=== PATIENT | female | born 1995 | race Caucasian/White ===

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

== ENCOUNTER 2017-02-28 22:30 | Emergency (ER) | payer OTHER ==
--- NOTE | 2017-02-28 22:44 | ED.PDOC ---
History of Present Illness - General Chief Complaint: Neuro Symptoms/Deficits Stated Complaint: Seizure & Vomiting Time Seen by Provider: 02/28/17 22:31 Source: RN notes reviewed, Vital Signs reviewed, other - Boyfriend & his mother Exam Limitations: clinical condition - unresponsive - History of Present Illness Initial Comments: Patient brought in from home by boyfriend and his mother with c/o vomiting and seizure. Reports vomiting started @ ~21:30. Since then they report she has been minimally responsive and unable to talk. Seemed confused and "out of it". Vomited again just before seizure @~22:20. Per boyfriend seizure lasted 1 minute. They report since then (in a 15 minute period) she had numerous seizures lasting from 10-60 seconds. Timing/Duration: 1-3 hours Severity: severe Improving Factors: nothing Worsening Factors: nothing Associated Symptoms: confusion, loss of consciousness, nausea/vomiting, seizures Allergies/Adverse Reactions: Allergies NO KNOWN ALLERGY Allergy (Verified 12/23/15 23:17) Home Medications: Ambulatory Orders Tramadol HCl 1 - 2 ea PO Q6H PRN #40 tab 12/13/15 Review of Systems - Review of Systems Unable to Obtain Due To: clinical condition Past Medical History (General) - Patient Medical History Hx Seizures: Yes - 2012 Hx Stroke: Yes - 2012 Hx Dementia: No Hx Asthma: No Hx of COPD: No 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 Hx Congestive Heart Failure: No Hx Pacemaker: Yes Hx Hypertension: No Hx Thyroid Disease: No Hx Diabetes: No Hx Gastroesophageal Reflux: No Hx Renal Disease: No Hx Cancer: No Hx of HIV: No Hx Hepatitis C: No Hx MRSA: No - Vaccination History Hx Tetanus, Diphtheria Vaccination: Yes Hx Influenza Vaccination: Yes Hx Pneumococcal Vaccination: No - Social History Hx Tobacco Use: No Hx Chewing Tobacco Use: No Hx Alcohol Use: No Hx Substance Use: No Hx Substance Use Treatment: No Hx Depression: No Hx Physical Abuse: No Hx Emotional Abuse: No Hx Suspected Abuse: No - Female History Hx Last Menstrual Period: 06/28/16 Patient : No Family Medical History - Family History Mother Family History: No Known Living Status: Still Living Hx Family Asthma: No Hx Family Congestive Heart Failure: No Hx Family Hypertension: No Hx Family Stroke: No Hx Cardiac Disease: No Hx Family Diabetes: No Hx Family Cancer: No Physical Exam - Physical Exam General Appearance: Lethargic Eye Exam: bilateral normal, bilateral other - Injected conjunctiva ENT Exam: normal ENT inspection Neck: full range of motion, supple, normal inspection Respiratory: lungs clear, normal breath sounds, no respiratory distress, no accessory muscle use Cardiovascular/Chest: regular rate, rhythm, no gallop, no murmur Extremities Exam: normal range of motion, no evidence of injury Mental Status: lethargic - Looking around room. 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 She reports this is exactly what happens when the patient smokes marijuana. Boyfriend admits patient smoked marijuana with his sister monico. Mom report she only has seizures when she smokes marijuana. 03/01/17 00:26 Patient is now awake and answering questions appropriately. Admits to alcohol use monico but denies any marijuana or drug use. 03/01/17 00:53 Discussed that she seems to have serious issues with drugs and alcohol - needs to avoid use. - Results/Orders Results/Orders: Laboratory Tests 02/28/17 02/28/17 02/28/17 00:01 23:22 23:22 WBC 8.9 RBC 5.36 Hgb 15.7 Hct 46.2 MCV 86.2 MCH 29.4 MCHC 34.1 RDW 13.8 Plt Count 228 MPV 9.4 Absolute Neuts (auto) 7.40 H Absolute Lymphs (auto) 1.10 Absolute Monos (auto) 0.30 Absolute Eos (auto) 0.00 Absolute Basos (auto) 0.00 Neutrophils % 83.1 H Lymphocytes % 12.5 L Monocytes % 3.7 Eosinophils % 0.2 L Basophils % 0.5 Sodium 138 Potassium 3.4 L Chloride 106 Carbon Dioxide 24 Anion Gap 11.4 L BUN 9 Creatinine 0.50 L BUN/Creatinine Ratio 18.0 Random Glucose 100 Serum Osmolality 274.4 L Calcium 9.8 Total Bilirubin 0.3 AST 40 ALT 44 Alkaline Phosphatase 58 L Serum Total Protein 9.4 H Albumin 5.5 Globulin 3.9 H Albumin/Globulin Ratio 1.4 Serum HCG, Qual Urine Opiates Screen Negative Urine Barbiturates Negative Ur Phencyclidine Scrn Negative U Amphetamin/Meth Scrn Negative U Benzodiazepines Scrn Negative U Cocaine Metab Screen Negative U Cannabinoids Screen Negative Ethyl Alcohol 02/28/17 02/28/17 23:22 23:22 WBC RBC Hgb Hct MCV MCH MCHC RDW Plt Count MPV Absolute Neuts (auto) Absolute Lymphs (auto) Absolute Monos (auto) Absolute Eos (auto) Absolute Basos (auto) Neutrophils % Lymphocytes % Monocytes % Eosinophils % Basophils % Sodium Potassium Chloride Carbon Dioxide Anion Gap BUN Creatinine BUN/Creatinine Ratio Random Glucose Serum Osmolality Calcium Total Bilirubin AST ALT Alkaline Phosphatase Serum Total Protein Albumin Globulin Albumin/Globulin Ratio Serum HCG, Qual Negative Urine Opiates Screen Urine Barbiturates Ur Phencyclidine Scrn U Amphetamin/Meth Scrn U Benzodiazepines Scrn U Cocaine Metab Screen U Cannabinoids Screen Ethyl Alcohol 99.80 H* - EKG/XRAY/CT Comments: Ventricular Pacemaker CT Ordered: Yes - Head: no acute intracranial abnormality per Rad Departure - Departure Clinical Impression: Seizure disorder, Alcohol intoxication delirium Altered mental status Qualifiers: Altered mental status type: transient alteration of awareness Qualified Code(s) : R40.4 - Transient alteration of awareness Time of Disposition: 00:52 Disposition: Discharge to Home or Self Care Condition: Fair Departure Forms: ED Discharge - Pt. Copy, Patient Portal Self Enrollment Instructions: DI for Alcohol Abuse and Alcoholism, DI for Seizure (Not Epilepsy /Seizure Disorder), DI for Altered Mental Status Diet: resume usual diet Activity: increase activity as tolerated Referrals: Osorio Figueroa MD [Primary Care Provider] - 1-2 Weeks Home Medications: Ambulatory Orders Tramadol HCl 1 - 2 ea PO Q6H PRN #40 tab 12/13/15
[2017-02-28] MEDS ORDERED: SODIUM CHLORIDE 0.9% 1000ML 1,000 ML IVS ONE (23:49)
--- NOTE | 2017-03-01 00:48 | CT ---
EXAM DESCRIPTION: Head CLINICAL HISTORY: Seizure COMPARISON: 01/11/2014 TECHNIQUE: Axial CT of the head obtained from the skull apex to the skull base without contrast. FINDINGS: No acute intracranial hemorrhage identified. No mass, mass effect, shift of the midline, abnormal extra-axial fluid collection or CT evidence of acute ischemic change identified. The ventricular system is unremarkable. No acute abnormalities of the supratentorial white matter, basal ganglia, cerebellum, or brainstem. 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 The visualized paranasal sinuses and the mastoids are clear. No skull fracture identified. Visualized orbits and globes are unremarkable. DLP: 677.23 mGy-cm IMPRESSION: 1. No acute intracranial abnormality by CT criteria. This exam was performed according to our departmental dose-optimization program, which includes automated exposure control, adjustment of the mA and/or kV according to patient size and/or use of iterative reconstruction technique. Electronically signed by: Rajiv Marin 03/01/2017 12:46 AM CDT
[2017-03-01 00:55] VITALS: BP 105/57; TEMP 97.8; O2SAT 98
== END 2017-03-01 01:03 | disposition home or self-care (01) ==
LOC: ER 22:30
DX: G40.909 Epilepsy, unspecified, not intractable, without status epilepticus (principal); F10.121 Alcohol abuse with intoxication delirium; Y90.4 Blood alcohol level of 80-99 mg/100 ml; R40.4 Transient alteration of awareness; Z95.0 Presence of cardiac pacemaker
CPT/HCPCS: 36415; 70450; 80053; 80307; 80320; 84703; 85025; 93005; J7030

== ENCOUNTER 2017-05-08 20:15 | Emergency (ER) | payer SELFPAY ==
[2017-05-08 20:39] VITALS: TEMP 98.4; O2SAT 97
--- NOTE | 2017-05-08 20:41 | ED.PDOC ---
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 Time Seen by Provider: 05/08/17 20:27 Source: patient Exam Limitations: no limitations - History of Present Illness Timing/Duration: this morning - vag bleeding started today, but has had low back pain for two days Quality: moderate, cramping Onset Location: suprapubic, left flank Radiation: left flank Activites at Onset: rest Prior abdominal problems: similar symptoms - had a miscarriage 2-3 months ago Sexual intercourse history: single partner Improving Factors: nothing Worsening Factors: nothing Associated Symptoms: abdominal pain Allergies/Adverse Reactions: Allergies NO KNOWN ALLERGY Allergy (Verified 12/23/15 23:17) Home Medications: Ambulatory Orders Tramadol HCl 1 - 2 ea PO Q6H PRN #40 tab 12/13/15 Indomethacin 50 mg PO TID PRN #14 cap 05/08/17 Review of Systems - Review of Systems Constitutional: Denies: fever, weakness EENTM: States: no symptoms reported Respiratory: Denies: short of breath Cardiology: Denies: chest pain, edema, syncope Gastrointestinal/Abdominal: States: abdominal pain. Denies: diarrhea, nausea, vomiting Genitourinary: States: see HPI. 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 Hx Congestive Heart Failure: No Hx Pacemaker: Yes Hx Hypertension: No Hx Thyroid Disease: No Hx Diabetes: No Hx Gastroesophageal Reflux: No Hx Renal Disease: No Hx Cancer: No Hx of HIV: No Hx Hepatitis C: No Hx MRSA: No - Vaccination History Hx Tetanus, Diphtheria Vaccination: Yes Hx Influenza Vaccination: Yes Hx Pneumococcal Vaccination: No - Social History Hx Tobacco Use: No Hx Chewing Tobacco Use: No Hx Alcohol Use: No Hx Substance Use: No Hx Substance Use Treatment: No Hx Depression: No Hx Physical Abuse: No Hx Emotional Abuse: No Hx Suspected Abuse: No - Female History Hx Last Menstrual Period: 06/28/16 Patient : No Family Medical History - Family History Mother Family History: No Known Living Status: Still Living Hx Family Asthma: No Hx Family Congestive Heart Failure: No Hx Family Hypertension: No Hx Family Stroke: No Hx Cardiac Disease: No Hx Family Diabetes: No Hx Family Cancer: No Physical Exam - Physical Exam General Appearance: Alert, Anxious Eyes, Ears, Nose, Throat Exam: PERRL/EOMI, pharynx normal Neck: non-tender, supple, normal inspection Cardiovascular/Respiratory: regular rate, rhythm, normal breath sounds Gastrointestinal/Abdominal: normal bowel sounds, soft, tenderness - suprapubic and LLQ Rectal Exam: deferred Back Exam: normal inspection, no CVA tenderness Extremity: normal range of motion, normal inspection, no pedal edema 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 Copy, Patient Portal Self Enrollment Referrals: Osorio Figueroa MD [Primary Care Provider] - 1-2 Weeks Prescriptions: Indomethacin 50 mg PO TID PRN #14 cap PRN Reason: Abdominal Cramping Home Medications: Ambulatory Orders Tramadol HCl 1 - 2 ea PO Q6H PRN #40 tab 12/13/15 Indomethacin 50 mg PO TID PRN #14 cap 05/08/17
[2017-05-08 21:20] VITALS: BP 110/72
== END 2017-05-08 21:20 | disposition home or self-care (01) ==
LOC: ER 20:15
DX: N93.8 Other specified abnormal uterine and vaginal bleeding (principal); Z95.0 Presence of cardiac pacemaker; Z86.73 Personal history of transient ischemic attack (TIA), and cerebral infarction without residual deficits

== ENCOUNTER 2017-05-11 17:30 | Inpatient (IN) | payer MEDICAID ==
[2017-05-11] MEDS ORDERED: ONDANSETRON INJ 4 MG/2 ML VIAL IV ONE (18:53)
[2017-05-11] MEDS ORDERED: SODIUM CHLORIDE 0.9% 1000ML 1,000 ML IVS ONE (18:53)
--- NOTE | 2017-05-11 18:56 | ED.PDOC ---
History of Present Illness - General Chief Complaint: Problem Stated Complaint: vomiting,right flank pain Time Seen by Provider: 05/11/17 18:51 Source: patient Exam Limitations: no limitations - History of Present Illness Initial Comments: RIGHT FLANK PAIN ONSET YESTERDAY ASSOCIATED WITH NAUSEA AND DIARRHEA. SHE HAS HAD SUBJECTIVE FEVER. Timing/Duration: 24 hours Severity: moderate Improving Factors: nothing Worsening Factors: nothing Associated Symptoms: cough, fever/chills Allergies/Adverse Reactions: Allergies NO KNOWN ALLERGY Allergy (Verified 12/23/15 23:17) Home Medications: Ambulatory Orders NK [NK] 05/11/17 Review of Systems - Review of Systems Constitutional: States: chills EENTM: States: no symptoms reported Respiratory: States: cough, short of breath Cardiology: States: no symptoms reported Gastrointestinal/Abdominal: States: diarrhea, nausea Genitourinary: States: frequency, other - RIGHT FLANK PAIN Musculoskeletal: States: no symptoms reported Skin: States: no symptoms reported Neurological: States: no symptoms reported, depressed Endocrine: States: no symptoms reported Past Medical History (General) - Patient Medical History Hx Seizures: Yes - 2012 Hx Stroke: Yes - 2012 Hx Dementia: No Hx Asthma: No Hx of COPD: No 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 Hx Congestive Heart Failure: No Hx Pacemaker: Yes Hx Hypertension: No Hx Thyroid Disease: No Hx Diabetes: No Hx Gastroesophageal Reflux: No Hx Renal Disease: No Hx Cancer: No Hx of HIV: No Hx Hepatitis C: No Hx MRSA: No Surgical History: pacemaker - Vaccination History Hx Tetanus, Diphtheria Vaccination: Yes Hx Influenza Vaccination: No Hx Pneumococcal Vaccination: No - Social History Hx Tobacco Use: Yes Hx Chewing Tobacco Use: No Hx Alcohol Use: No Hx Substance Use: No Hx Substance Use Treatment: No Hx Depression: No Hx Physical Abuse: No Hx Emotional Abuse: No Hx Suspected Abuse: No - Female History Patient is a Female of Child Bearing Age (10 -59 yrs old): Yes Hx Last Menstrual Period: 06/28/16 Patient : No Family Medical History - Family History Mother Family History: No Known Living Status: Still Living Hx Family Asthma: No Hx Family Congestive Heart Failure: No Hx Family Hypertension: No Hx Family Stroke: No Hx Cardiac Disease: No Hx Family Diabetes: No Hx Family Cancer: No Physical Exam - Physical Exam General Appearance: Alert, Anxious Eye Exam: bilateral normal Ears, Nose, Throat: normal ENT inspection, normal pharynx Neck: non-tender, full range of motion, supple, normal inspection Respiratory: chest non-tender, rhonchi Cardiovascular/Chest: normal peripheral pulses, regular rate, rhythm, no edema, no gallop Peripheral Pulses: radial,right: 2+ Gastrointestinal/Abdominal: normal bowel sounds, non tender, soft, no organomegaly, no pulsatile mass Rectal Exam: deferred Back Exam: normal inspection Extremity: normal range of motion Neurologic: no motor/sensory deficits, alert, oriented x 3 Skin Exam: normal color, warm/dry Lymphatic: no adenopathy Progress - Results/Orders Results/Orders: THE WBC [place] 80[address] WITH 90% NEUTROPHILS. THE UA WITH 4+ BACTERIA AND KETONURIA AND PROTEINURIA. CXR WAS NEGATIVE. WILL ADMIT TO THE HOSPITAL. Departure - Departure Clinical Impression: Acute pyelonephritis Intractable vomiting with nausea Qualifiers: Vomiting type: unspecified Qualified Code(s): R11.2 - Nausea with vomiting, unspecified Time of Disposition: 21:03 Disposition: Admit Patient Referrals: DENNIS COLES [Primary Care Provider] - 1-2 Weeks Home Medications: Ambulatory Orders NK [NK] 05/11/17 Decision To Admit - Decistion To Admit Decision to Admit Reason: Admit from ER Decision to Admit Date: 05/11/17 Decision to Admit Time: 21:02
--- NOTE | 2017-05-11 19:13 | RAD ---
EXAM DESCRIPTION: Chest,1 View CLINICAL HISTORY: SOB, FEVER COMPARISON: 12/23/2015 FINDINGS: Electronic cardiac device and lead as well as apparent abandoned wire are again seen. Cardiac silhouette is within normal limits. There is no focal parenchymal or pleural disease. Visualized osseous structures are within normal limits. IMPRESSION: No evidence of acute cardiopulmonary disease. Electronically signed by: Rocael Finch 05/11/2017 7:12 PM [employer]
[2017-05-11] MEDS ORDERED: KETOROLAC TROMETHAMINE INJ 30 MG/ML VIAL ONE (19:56)
[2017-05-11] MEDS ORDERED: KETOROLAC TROMETHAMINE INJ 30 MG/ML VIAL IV ONE (20:00)
[2017-05-11] MEDS ORDERED: cefTRIAXone SODIUM 1 GM in SODIUM CHL 0.9% 50ML MIN-BAG+ 50 ML IVPB ONE (21:04)
[2017-05-11] MEDS ORDERED: cefTRIAXone SODIUM 1 GM VIAL ONE (21:06)
[2017-05-11] MEDS ORDERED: SODIUM CHL 0.9% 50ML MIN-BAG+ 50 ML IVPB ONE (21:06)
--- NOTE | 2017-05-11 22:37 | HP ---
SUPERVISING PHYSICIAN: Osorio Figueroa MD CHIEF COMPLAINT: Right flank pain, nausea or vomiting. HISTORY OF PRESENT ILLNESS: Ms. Amaral is a 22 year-old female patient, 1, para 0, abortus 1, that presented to the Emergency Department today with severe right flank pain that started yesterday, the day before admission that accompanied some nausea and vomiting and some mild diarrhea. She denies any fever at home. She presented to the Emergency Department for evaluation due to the severe pain. Laboratory studies showed she had a white count of 19, 700 with a left shift. Chemistries showed a mild hypokalemia with a potassium fo 3.5, slight elevation in liver function with an elevated AST at 65, ALT 62. Amylase and lipase were within normal limits. Kidney functions showed a BUN of 14, creatinine 0.67. Urinalysis showed 100 of protein with trace of blood, positive nitrites and on microscopic there was 0 t 1 RBC, 1 to 3 WBC, 4+ bacteria, trace amount of mucus and urine HCG was negative. The patient is now going to be placed in observation with concerns for complicated cystitis developing to a pyelonephritis on the right side for further treatment and evaluation. She is admitted in stable condition. PAST MEDICAL HISTORY: 1. Cardiomyopathy resulting in a pacemaker implantation at 7 years of age. 2. Previous stroke, uncertain region reported by mother secondary to a blood clot as a child. PAST SURGICAL HISTORY: No major surgeries other than pacemaker implantation at 7 years of age. OBSTETRICAL HISTORY: 1, para 0, abortus 1. Last menstrual period current. CURRENT MEDICATIONS: No chronic medications listed. ALLERGIES: No known drug allergies. FAMILY HISTORY: Positive for cancer, hypertension, diabetes. SOCIAL HISTORY: The patient just recently moved to [facility] with her mother after a separation from her for the last several months. She notes that she is sexually active with a single partner besides her 's separation. She is disabled. She does smoke less than half pack a day and drinks occasional alcohol. She denies illicit drug use. REVIEW OF SYSTEMS: CONSTITUTIONAL: Notes she has had some chills but unsure if any fever at home and has general malaise. HEENT: Denies nasal congestion, headaches, sore throat. RESPIRATORY: She does have a cough with some mild shortness of breath which is nonproductive. CARDIOVASCULAR: Denies chest pain, syncopal episodes or palpitations. She does have a history of cardiomyopathy with a previous pacemaker implantation at age of 7. GASTROINTESTINAL: As noted in history of present illness. Noted some mild diarrhea with some nausea and vomiting. She does have some right upper quadrant pain. GENITOURINARY: Increased frequency with right flank pain. NEUROLOGICAL: Denies any neurological deficits, dizziness, change in vision. PHYSICAL EXAMINATION: VITAL SIGNS: Temperature 96.8, pulse 58, blood pressure 104/60, respirations 18, saturation 99% on room air. Admission weight 49.1 kg. GENERAL: The patient is resting comfortably on admission to the medical/ surgical floor, appears to be in no acute distress. She is ill in appearance, appears to be well hydrated and well-nourished. HEENT: Tympanic membranes are clear bilaterally. Oropharynx pink. Mucous membranes mildly dry with no lesions. NECK: Supple, non-tender with full range of motion. No jugular venous distention. CHEST: Clear to auscultation without any rhonchi, rales, or wheezes. CARDIOVASCULAR: Regular rate and rhythm without appreciable murmurs, rubs, or gallops. ABDOMEN: Soft with some tenderness noted across the right upper quadrant and into the right flank area. EXTREMITIES: No cyanosis, clubbing, or edema. NEUROLOGIC: She is alert and oriented x3. Cranial nerves II through XII are grossly intact. LABORATORY: White count shows a leukocytosis with 19,700 and left shift on differential. Hemoglobin 15.4, hematocrit 46.0. Platelet count 215,000. Chemistries showed a mild hypokalemia with potassium of 3.5, BUN 14, creatinine 0.67, glucose 115, calcium 9.5, bilirubin normal at 0.7. AST slightly elevated at 65, ALT elevated at 63, alkaline phosphatase low at 62. LDH is elevated at 553. Serum protein 8.5, amylase and lipase both within normal limits. Urinalysis showed 100 of protein with trace of blood, positive nitrites. Microscopic revealed 0 to 1 RBC, 1 to 3 WBC, 5 to 10 epithelials with 4+ bacteria. Urine HCG was negative. MICROBIOLOGY: Urine culture pending. She had an influenza swab for A and B and by PCR showed to be negative for both. RADIOLOGY: Chest x-ray initially in the Emergency Department per radiology interpretation showed no evidence of acute cardiopulmonary disease. She had an abdominal CT pelvis with contrast on admission to the medical/surgical floor secondary to her right flank pain and per radiology interpretation there was note of a wedged shaped area of enhancing renal tissue in the superior pole of the kidney with adjacent areas of diminished perfusion in the anterior aspect and superior pole, findings suggest area of infarct with adjacent areas of diminished perfusion. Finding would be atypical presentation of pyelonephritis. There was no evidence of acute process specifically. No additional foci to suggest acute infarct. The visualized segments of the right main renal artery were unremarkable and there was no mention of hydronephrosis or calculus. ASSESSMENT: 1. Right flank pain with nausea and vomiting with CT findings suggestive of a right kidney infarct with the right main renal artery appearing to be unremarkable per radiology with no mention of hydronephrosis or calculus with patient showing an elevated LDH. 2. Urinary tract infection, cystitis with atypical presentation of pyelonephritis with the patient showing infarcted right kidney and elevated LDH. 3. History of cardiomyopathy as a child requiring pacemaker implantation. 4. History of previous stroke secondary to a blood clot of uncertain etiology. with no medical records for review and the patient being a poor historian. PLAN: The patient will be admitted to the medical/surgical floor for further evaluation and treatment. She will be started on DVT prophylaxis given her history, per protocol with Lovenox. I will start her on some IV fluids, half normal saline, 20 of potassium to run at 125 an hour. Started her on some Rocephin in regards to the urinary tract infection with concerns for maybe atypical pyelonephritis but no CT evidence of findings suggestive of typical pyelonephritis. We certainly need to contact Dr. Daly, nephrology/urology in the morning in regards to the findings on the CT with suggested further followup and treatment plan. Will utilize morphine for pain and try to avoid Toradol with the findings suggestive of an infarct. She will be on a clear liquid diet, as tolerated will advance her diet. We plan to repeat laboratory studies in the morning including CBC and CMP and further await culture studies to further target antibiotic therapy. Will anticipate length of stay to be 2 to 3 days. Until clinically stable, will continue to monitor and treat approximately. #[id number] [facility]
[2017-05-11] MEDS ORDERED: ACETAMINOPHEN 325 MG TAB PO PRN (23:29)
[2017-05-11] MEDS ORDERED: KETOROLAC TROMETHAMINE INJ 30 MG/ML VIAL IV PRN (23:32)
[2017-05-12] MEDS: IV SET AND CAP CHANGE INJ INJ SCH (00:10)
--- NOTE | 2017-05-12 00:19 | PCM.CORE ---
Physician DVT/VTE - Nurse DVT Assessment & Total Each Risk Factor Represents 3 Points: Medical PT with Hx of AR, CHF, Severe infection/sepsis Each Risk Factor Represents 1 Point: Hx of smoking past year DVT Assessment Score: 4 - 5 or more Very High Risk Treatments: Early Ambulation *, Sequential Compression Device Pharmacological: Enoxaparin 40mg SQ Daily
[2017-05-12] MEDS ORDERED: ENOXAPARIN SODIUM 40 MG/0.4 ML SYG SUBCU SCH ×3 (00:30→11:00)
[2017-05-12] MEDS ORDERED: KETOROLAC TROMETHAMINE INJ 30 MG/ML VIAL ONE (00:57)
--- NOTE | 2017-05-12 01:06 | CT ---
EXAM DESCRIPTION: Abdomen/Pelvis w/Contrast CLINICAL HISTORY: 22 years Female RUQ and Rt flank pain N/V , UTI, Leukocytosis COMPARISON: None. TECHNIQUE: Contiguous axial images obtained through the abdomen and pelvis following IV contrast. Reformatted images obtained. This exam was performed according to our department optimization program which includes automated exposure control, adjustment of the mA and/or kv according to patient size and/or use of iterative reconstruction technique. FINDINGS: The liver appears unremarkable. The spleen and pancreas appear unremarkable. No adrenal masses. There is diminished enhancement in the superior aspect of the right kidney with a wedge-shaped area of unenhanced tissue. The configuration suggests infarct. Atypical pyelonephritis not excluded. There is no surrounding inflammation. The visualized segments of the right main renal artery are unremarkable. No hydronephrosis or calculus. The gallbladder is visualized. No aneurysmal dilatation of the aorta. No bowel obstruction. The appendix is unremarkable. No significant free fluid noted. IMPRESSION: There is a wedge-shaped area of an enhancing renal tissue in the superior pole of the right kidney with adjacent areas of diminished perfusion in the anterior aspect and superior pole. Findings suggest area of infarct with adjacent areas of diminished perfusion. Findings would be an atypical presentation of pyelonephritis No additional evidence of acute process specifically no additional foci to suggest acute infarct Ashley Celaya the charge nurse was called and notified of the findings at 1:05 AM central time. Electronically signed by: Odalis Moreno 05/12/2017 1:05 AM [employer] [employer]
[2017-05-12] MEDS: SODIUM CHLORIDE 0.9% (FLUSH) 10 ML SYG IV PRN ×3 (02:10→22:33)
[2017-05-12] MEDS: MORPHINE SULFATE INJ 10 MG/ML VIAL IV PRN ×7 (02:11→22:33)
[2017-05-12] MEDS: KCL 20MEQ/0.45% NS 1,000 ML IVS PRN ×2 (02:12→09:57)
[2017-05-12] MEDS ORDERED: HYDROcodone 10MG/APAP 325MG 1 EA TAB PO ONE (14:21)
--- NOTE | 2017-05-12 15:47 | PN ---
DATE: 05/12/17 SUPERVISING PHYSICIAN: Osorio Figueroa M.D. SUBJECTIVE: The patient is lying in bed. She is somewhat tearful. She denies any chest pain, nausea, vomiting, diarrhea. She complains of extremely bad right lower back pain. On a scale of 1 to 10, her pain is about an 8. She has been getting morphine for it and I have told her we will adjust her pain medications. OBJECTIVE: She is afebrile, heart rate 64, blood pressure 111/70, respiratory rate 18, O2 sat is 96% on room air. RESPIRATORY: Essentially clear to auscultation bilaterally. CARDIAC: Regular rate and rhythm. ABDOMEN: Soft, nondistended, non-tender. Bowel sounds are positive. She does have right flank pain, very tender to palpation. EXTREMITIES: No cyanosis, clubbing or edema. NEUROLOGIC: Awake, alert and oriented times three. LABORATORY: Sodium 140, potassium 3.9, chloride 105, carbon dioxide 28, BUN 11 , creatinine 0.62, glucose 129. AST 43, ALT 51, alkaline phosphatase 50. WBCs have improved from 19.7 yesterday to 13.8 today with hemoglobin 12.2 and hematocrit 36.2. Preliminary urine culture shows gram-negative rods. RADIOLOGY: Abdomen and pelvis CT per radiology interpretation shows a wedge- shaped area of enhancing renal tissue in the superior pole of the right kidney with adjacent areas of diminished perfusion in the anterior aspect and superior pole. Findings suggest area of infarct with adjacent areas of diminished perfusion. Findings would be an atypical presentation of pyelonephritis. No additional evidence of acute process, specifically no additional foci to suggest acute infarct. All other labs and films have been reviewed via the EMR. ASSESSMENT: 1. Subsegmental pyelonephritis presently being treated with Rocephin and gram-negative rods on urine culture. 2. Right kidney infarct per CT findings with the right main renal artery appearing to be unremarkable per radiology and no mention of hydronephrosis. She also has an elevated LDH. 3. Urinary tract infection. 4. History of cardiomyopathy as a child requiring pacemaker implantation. 5. History of previous stroke secondary to a blood clot of uncertain etiology approximately 5 years ago. There are no medical workups to review at this time. PLAN: We will continue present supportive care. We will change antibiotics as indicated by culture sensitivities. I spoke with Dr. Daly, board certified music therapist, today and he has recommended that she get a 24 hour urine for protein as well as a lupus panel, and he will see her in the outpatient setting. I also spoke with Dr. Scar Phillips, urologist, and he suggested that this presentation may be segmental pyelonephritis and continue treatment based on cultures. He felt that there was nothing acutely that should be done and she could followup with him in the outpatient setting. He also suggested that she have an echocardiogram as well as seeing a hospice spiritual care coordinator, and I will set her up with followup with Dr. Dixon, hospice spiritual care coordinator, and will also find out if she has any additional labs that she would like to have ordered. She does not have a local physician so I will set her up with [facility] and Dr. Perez. I have ordered routine labs in the morning as well as those labs suggested by Dr. Daly. Will continue with the Rocephin at this time. Tomorrow , he sensitivities should be back. She is having some pain issues and at this time she is getting morphine. I will add some [place] and see if we can transition her from IV pain medications to oral pain medications. She is not having any nausea or vomiting at this time. I discussed at length with the patient as well as her mother the findings on her testing as well as thee recommendations by the specialist. They agree with the planned treatment of care. We will continue to monitor the patient closely and follow as needed. Dr. Figueroa is the collaborating physician available for consultation. [facility][id number] [facility]
[2017-05-12] MEDS: ENOXAPARIN SODIUM 40 MG/0.4 ML SYG SUBCU SCH (20:27)
[2017-05-13] MEDS: MORPHINE SULFATE INJ 10 MG/ML VIAL IV PRN ×4 (00:25→08:38)
[2017-05-13] MEDS: SODIUM CHLORIDE 0.9% (FLUSH) 10 ML SYG IV PRN ×4 (00:25→22:14)
[2017-05-13] MEDS: KCL 20MEQ/0.45% NS 1,000 ML IVS PRN ×3 (02:41→20:25)
[2017-05-13] MEDS ORDERED: MAGNESIUM SULFATE PREMIX 2GM 2 GM in PREMIX BAG 1 BAG IVPB ONE (10:00)
[2017-05-13] MEDS ORDERED: MAGNESIUM SULFATE PREMIX 2GM 50 ML IVPB ONE (10:23)
[2017-05-13] MEDS: fentaNYL CITRATE INJ 50 MCG/ML AMP IV PRN ×3 (11:45→22:15)
[2017-05-13] MEDS ORDERED: KETOROLAC TROMETHAMINE INJ 30 MG/ML VIAL ONE (11:55)
[2017-05-13] MEDS: KETOROLAC TROMETHAMINE INJ 30 MG/ML VIAL IV SCH ×2 (12:02→18:03)
--- NOTE | 2017-05-13 12:40 | PN ---
DATE: 05/13/17 SUPERVISING PHYSICIAN: Osorio Figueroa M.D. SUBJECTIVE: The patient is lying in bed. Has no complaints of chest pain, shortness of breath, vomiting, constipation or diarrhea. She had earlier complaints of continued pain in spite of morphine. She said it was not controlling her pain. She also stated she threw up her [place] although it was discontinued after 1 dose from yesterday. She also complained of some coughing but it was very mild. Most complaints are pain in the right flank area. OBJECTIVE: VITAL SIGNS: She is afebrile, heart 62, blood pressure 99/63, respiratory rate 16, O2 sat is 95% on room air. RESPIRATORY: Essentially clear to auscultation bilaterally. CARDIAC: Regular rate and rhythm. ABDOMEN: Soft, nondistended, non-tender. Bowel sounds are positive. She does have right flank pain that is tender to palpation. EXTREMITIES: No cyanosis, clubbing or edema. NEUROLOGIC: She is awake, alert and oriented times three. LABORATORY: WBCs have normalized to 8.6 with hemoglobin 11.7 and 34.1. Electrolytes are basically within normal limits with the exception fo her magnesium being slightly low at 1.6 and serum osmolality 269.5. Final urine culture shows Escherichia coli and it shows sensitivity to Ceftriaxone which she is presently taking. All other labs and films have been reviewed via the EMR. ASSESSMENT: 1. Subsegmental pyelonephritis with urine culture showing Escherichia coli with sensitivity to Rocephin which she is presently on. 2. Right kidney infarct per CT findings with the right main renal artery appearing to be unremarkable per radiology and no mention of hydronephrosis. She also has an elevated LDH. 3. Urinary tract infection, Escherichia coli. 4. History of cardiomyopathy as a child requiring pacemaker implantation. 5. History of previous stroke secondary to a blood clot of uncertain etiology approximately 5 years ago. There are no medical workups to review at this time. PLAN: We will continue present supportive care. She was previously on IV morphine for pain. I have changed her to Fentanyl. I have done extensive teaching with the patient that we will have to transition her to p.o. medications. She had complained that she was throwing up p.o. medications, although she is tolerating her other oral medications without problems as well as her meals. I explained to her that we would have to transition her to oral pain medications tomorrow and if she does vomit those up, that the nursing would have to see the emesis. I have also added some Toradol 30 mg IV times 6 doses. Maybe that will help control her pain. Labs that were recommended by Dr. Daly, bike assembler, are pending at this time. She will need a followup with him. She will also need a followup with Dr. Dixon, steam and power supervisor. I will speak to Dr. Dixon on Sunday to see if there is any further testing she would like to address as well as if the patient will need to go home on oral anticoagulants. I have given her 2 grams of magnesium due to her low magnesium and will check her labs in the morning. Otherwise we will plan for discharge in the next several days as her white count has normalized and she is on the appropriate antibiotics. We will continue present supportive and followup as needed. Dr. Figueroa is the collaborating physician available for consultation. #[id number] [facility]
[2017-05-13] MEDS: ENOXAPARIN SODIUM 40 MG/0.4 ML SYG SUBCU SCH (22:16)
[2017-05-14] MEDS: SODIUM CHLORIDE 0.9% (FLUSH) 10 ML SYG IV PRN ×2 (00:29→06:30)
[2017-05-14] MEDS: KETOROLAC TROMETHAMINE INJ 30 MG/ML VIAL IV SCH ×4 (00:29→17:40)
[2017-05-14] MEDS: KCL 20MEQ/0.45% NS 1,000 ML IVS PRN (04:48)
[2017-05-14] MEDS ORDERED: cefTRIAXone SODIUM 1 GM VIAL ONE ×2 (09:53→19:56)
[2017-05-14] MEDS ORDERED: SODIUM CHL 0.9% 50ML MIN-BAG+ 50 ML IVPB ONE ×2 (09:53→19:56)
[2017-05-14] MEDS: cefTRIAXone SODIUM 1 GM in SODIUM CHL 0.9% 50ML MIN-BAG+ 50 ML IVPB SCH ×2 (09:57→21:45)
[2017-05-14] MEDS: SODIUM CHLORIDE 0.9% (FLUSH) 10 ML SYG IV SCH ×2 (17:18→21:45)
[2017-05-14] MEDS: HYDROcodone 5MG/APAP 325MG 1 EA TAB PO PRN (17:40)
--- NOTE | 2017-05-14 20:21 | PN ---
DATE: 05/14/17 SUPERVISING PHYSICIAN: Link Ortiz M.D. SUBJECTIVE: The patient continues to have a degree of pain that is being controlled with Fentanyl as well as showing improvement with Toradol. She has no longer had any nausea or vomiting and is encouraged to try p.o. pain medicine once again. Again, she continues to have a chief complaint of right flank pain. OBJECTIVE: VITAL SIGNS: She is afebrile with a max temperature of 98.0, pulse 67, blood pressure 94/53, respirations 18, satting 98% on room air. I's and O' s show a positive balance of 2584 with 3434 in, 850 out. Weight is 46.9 kg. CHEST: Lungs are clear to auscultation. HEART: Regular rate and rhythm. ABDOMEN: Soft, non-tender with positive bowel sounds. BACK: Exam continues to show significant right sided flank pain. EXTREMITIES: No clubbing, cyanosis or edema. NEUROLOGIC: She is alert and oriented times three. LABORATORY: White count remains within normal limits at 7,600 compared to admission of 19,700, hemoglobin is stable at 11.5, hematocrit 33.8, platelet count 155,000. Differential shows to be without a left shift today. She had no other labs repeated other than her magnesium and her CBC that was already listed. Chemistries only include repeated LDH of 1008 and magnesium 2.0. Again , electrolytes were normal yesterday. MICROBIOLOGY: Urine culture final results showed Escherichia coli that was pansensitive. There are no additional radiographic studies today. ASSESSMENT: 1. Subsegmental pyelonephritis with urine culture showing Escherichia coli that is pansensitive having been on Rocephin since admission. 2. Right kidney infarct per CT findings with the right main renal artery appearing to be unremarkable per radiology and no mention of hydronephrosis with the patient having a continued LDH that is elevated. 3. Urinary tract infection with Escherichia coli, pansensitive. The patient has been on Rocephin. 4. History of cardiomyopathy as a child requiring pacemaker implantation. 5. History of previous stroke secondary to a blood clot of uncertain etiology approximately 5 years previously with the patient having no medical workups to review at the time of admission. PLAN: The patient is still continuing to have significant pain in the right flank but is slowly titrating pain medicine to p.o. if she can tolerate. Will continue with an additional 24 hours of antibiotics in anticipation of discharging tomorrow. Again, she is encouraged to increase her oral diet to help with any nausea associated with [place]. I explained to her in detail that she needs to be transitioned to her oral pain medicines in anticipation of discharging in the morning. She will finish up her sixth dose of Toradol tonight. Will continue to review pending labs that Dr. Daly ordered as she just finished up her 24 hour urine protein. On discharge, she will need to have some close followup with Dr. Dixon possibly or to key cutter of preference and to establish with a primary care provider. I did explain and talk to the patient and mother at length in regards to initially establishing through the family clinic at [facility] until they can further establish with a primary care provider to continue with followup and management of her current problems. Will plan to hopefully discharge tomorrow with continued antibiotic coverage. Until then, will saline lock her and will continue to watch and closely monitor. [facility][id number] [facility]
[2017-05-14] MEDS: ENOXAPARIN SODIUM 40 MG/0.4 ML SYG SUBCU SCH (21:45)
[2017-05-14] MEDS: IV SET AND CAP CHANGE INJ INJ SCH (21:45)
[2017-05-15] MEDS: HYDROcodone 5MG/APAP 325MG 1 EA TAB PO PRN (02:10)
[2017-05-15] MEDS ORDERED: SODIUM CHL 0.9% 50ML MIN-BAG+ 50 ML IVPB ONE (09:12)
[2017-05-15] MEDS ORDERED: cefTRIAXone SODIUM 1 GM VIAL ONE (09:13)
[2017-05-15] MEDS: cefTRIAXone SODIUM 1 GM in SODIUM CHL 0.9% 50ML MIN-BAG+ 50 ML IVPB SCH (09:18)
[2017-05-15] MEDS: SODIUM CHLORIDE 0.9% (FLUSH) 10 ML SYG IV SCH (09:18)
[2017-05-15 10:34] VITALS: BP 101/72; TEMP 98.1; O2SAT 97
--- NOTE | 2017-05-16 11:06 | DS ---
SUPERVISING PHYSICIAN: Link Ortiz MD DISCHARGE DIAGNOSIS: 1. Subsegmental pyelonephritis with urine culture showing Escherichia coli that is pansensitive having been on Rocephin since admission, showing good response. 2. Right kidney infarct per CT findings with the right main renal artery appearing to be unremarkable per radiology and no mention of hydronephrosis with the patient having a continued LDH that is elevated, although returning to baseline prior to discharge. 3. Urinary tract infection with Escherichia coli, pansensitive with the patient being on Rocephin. 4. History of cardiomyopathy as a child requiring pacemaker implantation. 5. History of previous stroke secondary to a blood clot of uncertain etiology approximately 5 years previously with the patient having no medical workups to review at the time of admission. REASON FOR HOSPITALIZATION: Ms. Amaral is a 22 year-old female patient, 1, para 0, abortus 1, that presented to the Emergency Department on date of admission, 05/11/17, with severe right flank pain that started the day before admission that accompanied some nausea and vomiting and some mild diarrhea. She denied any fever at home. She presented to the Emergency Department for evaluation due to the severe pain. Laboratory studies showed she had a leukocytosis of 19,700 with a left shift. Chemistries were notable for hypokalemia with a potassium fo 3.5, elevation in liver function with an elevated AST at 65, ALT 62. Kidney functions showed a BUN of 14, creatinine 0.67. Urinalysis showed 100 of protein with trace of blood, positive nitrites and on microscopic there was 0 to 1 RBC, 5 to 10 epithelials with 4+ bacteria, trace amount of mucus and urine HCG was negative. The patient was placed in observation initially with concerns for complicated cystitis developing to a pyelonephritis on the right side for further treatment and evaluation. She was admitted in stable condition. LABORATORY: Initially on admission, white count was 19,700. After initiating antibiotics and prior to discharge, this had normalized to 7,600. Hemoglobin and hematocrit were stable at 11.5 and 33.8 at discharge. Platelet count 155, 000. Differential did show an initial left shift. This resolved with treatment prior to discharge. Chemistries on admission initially showed electrolytes with low potassium of 3.5. After fluids and treatment, electrolytes normalized with potassium 3.8. At discharge, creatinine was 0.6, BUN 8. Liver functions initially on admission did show a slight elevation with AST 65, ALT 62, normal bilirubin. Prior to discharge, they showed return to baseline with AST down to 43, ALT 51. LDH was elevated at 553 and went up to a maximum of 1008. At discharge, it was down to 770. Pancreatic enzymes were both within normal limits, amylase and lipase. Urinalysis initially on admission showed greater than 1.03 specific gravity with 100 protein, greater than 160 ketones and trace amount of lysed blood, positive nitrites. Microscopic revealed 0 to 1 RBC, 1 to 3 WBCs, 5 to 10 epithelials, 4+ bacteria, trace amount of mucus. Repeat urinalysis on 05/15/17 on date of discharge showed a small amount of blood, 2 urobilinogen with 1 to 3 RBCs, 3 to 5 WBCs, 30 to 40 epithelials, 2+ bacteria and moderate amount of mucus. She also had a urine protein 24 hour that showed total volume of 1975 mL. urine random total protein was 8.6 with urine total protein on 24 hours 169 mg in 24 hours. Urine HCG was negative. She had a lupus panel that was pending at time of discharge. MICROBIOLOGY: Initial urine culture showed an E. coli that was pansensitive. She had a rapid flu by PCR that was negative for both A and B. Blood cultures were negative after 3 days. RADIOLOGY: Chest x-ray on admission initially in the Emergency Department per radiologic interpretation showed no evidence of acute cardiopulmonary disease. After admission to the Medical/Surgical Floor, she had abdominopelvic CT with contrast and per radiologic interpretation showed a wedge-shaped area of enhancing renal tissue in the superior pole of the right kidney with adjacent areas of diminished perfusion in the anterior aspect of the superior pole. Findings were suggestive of area of infarct with adjacent areas of diminished perfusion. Findings would be atypical presentation of pyelonephritis. There was no evidence of acute process or additional foci to suggest acute infarct. There was no surrounding inflammation noted. Visualized segments of the right renal artery were unremarkable with no hydronephrosis or calculus. HOSPITAL COURSE: Ms. Amaral was admitted on 05/11/17 as noted above for concerns for pyelonephritis. She was given pain medicine, IV fluids and started antibiotics initially that included ceftriaxone given concerns for findings on CT for pyelonephritis. Her cultures did show an E. coli that was pansensitive. She did have a abdominopelvic CT with contrast as noted above with questionable segmental pyelonephritis versus an infarct. Dr. Daly was later consulted via phone who recommended that a lupus panel be completed along with a 24 hour urine and the patient to followup with primary care physician after discharge with renal arranged through the primary care physician for further evaluation. She was given fluids and remained hemodynamically stable. Vital signs on discharge showed she was afebrile with temperature of 98.1, pulse 67, blood pressure 101/72, saturation 97% on room air. It was felt she was clinically stable and improved and had significant pain. Therefore, she was to be discharged to continue with outpatient treatment plan. PLAN: She was discharged on 05/15/17 with instructions to followup with Dr. Perez at [facility] as scheduled on 05/23/17 at 9:50 or earlier should she have worsening or no improvement in her symptoms. She was to take medications as instructed and was encouraged to push p.o. fluids to prevent dehydration. Diet at discharge was a regular diet as tolerated. Activity was to increase as tolerated. M Medicines at discharge included pain management with: 1. Tylenol No. 3, 1 q.4h. as needed, #20. 2. Tylenol 500 mg q.4h. as needed. 3. Continue antibiotic therapy with cefuroxime axetil 500 mg q.12h., #28. She was also instructed to avoid NSAIDs as possible to prevent any further damage until she was seen in followup. Condition at discharge was stable and improved. #[id number] [facility]
== END 2017-05-15 13:14 | disposition home or self-care (01) | DRG 690 ==
LOC: ER 17:30 → MS 22:35 → OBSVTOIN 22:35 → MS 05-12 16:41
PROVIDERS: ADMIT Nurse Practitioner Family; ATTEND Nurse Practitioner Family
PROC: BW21YZZ Computerized Tomography (CT Scan) of Abdomen and Pelvis using Other Contrast (ICD-10-PCS; principal; 2017-05-11)
DX: N10 Acute pyelonephritis (principal); N28.0 Ischemia and infarction of kidney; N30.00 Acute cystitis without hematuria; I42.4 Endocardial fibroelastosis; E87.6 Hypokalemia; B96.20 Unspecified Escherichia coli [E. coli] as the cause of diseases classified elsewhere; F17.210 Nicotine dependence, cigarettes, uncomplicated; Z95.0 Presence of cardiac pacemaker; Z86.73 Personal history of transient ischemic attack (TIA), and cerebral infarction without residual deficits

== ENCOUNTER 2017-05-18 01:55 | Observation (INO) | payer SELFPAY ==
[2017-05-18] MEDS ORDERED: ALUM & MAG HYDROX-SIMETHICONE 30 ML, LIDOCAINE VISCOUS 2% 15 ML PO ONE ×4 (02:08→06:16)
[2017-05-18] MEDS ORDERED: MORPHINE SULFATE INJ 10 MG/ML VIAL ONE (02:09)
[2017-05-18] MEDS ORDERED: LIDOCAINE HCL 2% (MOUTH-THROAT) 15 ML UD ONE (02:14)
[2017-05-18] MEDS ORDERED: ALUM & MAG HYDROX-SIMETHICONE 30 ML UD ONE (02:14)
[2017-05-18] MEDS ORDERED: diazePAM INJ 10 MG/2 ML SYG IV ONE (02:21)
--- NOTE | 2017-05-18 02:27 | ED.PDOC ---
History of Present Illness - General Chief Complaint: Chest Pain/TX Stated Complaint: sharp stabbing pain in chest Time Seen by Provider: 05/18/17 01:58 Source: patient, family Exam Limitations: no limitations - History of Present Illness Initial Comments: the patient is a 22-year-old female presenting via EMS secondary to severe substernal chest pain starting acutely approximately 1 hour prior to her arrival there. She does not frequently have any chest pain. She does have a significant history of cardiomyopathy and has had a pacemaker placed since she was 7 years old. She does not have any coronary artery disease or any large vessel disease that she knows of. She has not had any pulmonary emboli. She was recently admitted and treated for a pyelonephritis. She had some nausea and vomiting 3 or 4 days ago when she started her treatment for the pyelonephritis. There was some question of a wedge infarction of her kidney as well. The chest pain today is severe. She is also having anxiety attack on top of it. The pain is worse with taking a deep breath as well as twisting or turningas well as lying back or sitting forward. Vital signs. She is satting 100% on room air. Lungs are clear to auscultation. She has no chest wall tenderness to palpation. There is no crepitus. There is no bruising. She was not throwing up today when the pain started. She has been on oral antibiotic for the pyelonephritis. additional information from familystates that she had something of a stroke a few years ago. She was apparently on Lovenox for a few months after that and then went to know what that is at all. She is currently supposed to be taking some dose of carvedilol however she has been off of that. She does have a significant history of anxiety and has been off of her anxiety medications as well. Family confirms that there is been no history of any coronary artery or large vessel disease. Her EKG here today shows a paced ventricular rhythm at 90 bpm with occasional [place] escaped beats. I have approximately 5 previous EKGs to compare to however they all only show a ventricularly paced rhythm with no [place] beats for comparison. Today her [place] V5 and V6 and V4 beats show significant T- wave inversion but I cannot say if this is new or old given the lack of previous noorvik beats compare to. Her [place] beat in the 1 locks looks like a right bundle branch block. Her [place] beat in lead 2 also shows significant T- wave inversion. the patient is feeling significantly better after a dose of morphine and a dose of Ativan. She is still reporting some mild discomfort only. Timing/Duration: 1 hour Severity: severe Improving Factors: nothing Worsening Factors: movement Associated Symptoms: chest pain Allergies/Adverse Reactions: Allergies NO KNOWN ALLERGY Allergy (Verified 12/23/15 23:17) Home Medications: Ambulatory Orders Acetamin W/Cod #3 Tab [Tylenol w/CODEINE #3] 1 ea PO Q4HR #20 tab 05/15/17 Acetaminophen [Mapap] 500 mg PO Q4HR PRN #30 cap 05/15/17 Cefuroxime Axetil 500 mg PO Q12H #28 tablet 05/15/17 Review of Systems - Review of Systems Constitutional: States: diaphoresis EENTM: States: no symptoms reported Respiratory: States: no symptoms reported Cardiology: States: chest pain Genitourinary: States: no symptoms reported Musculoskeletal: States: no symptoms reported Skin: States: no symptoms reported Neurological: States: anxiety - she is having a panic attack Endocrine: States: no symptoms reported All other Systems: No Change from Baseline Past Medical History (General) - Patient Medical History Hx Seizures: Yes Hx Stroke: Yes Hx Dementia: No Hx Asthma: No Hx of COPD: No 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 Hx Congestive Heart Failure: No Hx Pacemaker: Yes Hx Hypertension: Yes Hx Thyroid Disease: No Hx Diabetes: No Hx Gastroesophageal Reflux: No Hx Renal Disease: No Hx Cancer: No Hx of HIV: No Hx Hepatitis C: No Hx MRSA: No Surgical History: pacemaker - Vaccination History Hx Tetanus, Diphtheria Vaccination: Yes Hx Influenza Vaccination: No Hx Pneumococcal Vaccination: No - Social History Hx Tobacco Use: Yes Hx Chewing Tobacco Use: No Hx Alcohol Use: No Hx Substance Use: Yes - has used marijuana Hx Substance Use Treatment: No Hx Depression: No Hx Physical Abuse: No Hx Emotional Abuse: No Hx Suspected Abuse: No - Female History Patient is a Female of Child Bearing Age (10 -59 yrs old): Yes Hx Last Menstrual Period: 06/28/16 Patient : No Family Medical History - Family History Mother Family History: No Known Living Status: Still Living Hx Family Asthma: No Hx Family Congestive Heart Failure: No Hx Family Hypertension: No Hx Family Stroke: No Hx Cardiac Disease: No Hx Family Diabetes: No Hx Family Cancer: No Physical Exam - Physical Exam General Appearance: Alert, Anxious Eye Exam: right normal Ears, Nose, Throat: hearing grossly normal, normal ENT inspection, normal pharynx Neck: full range of motion, supple, normal inspection Respiratory: lungs clear, normal breath sounds, no respiratory distress, no accessory muscle use Cardiovascular/Chest: normal peripheral pulses, no edema, other - egular rate. 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 the patient was given 2 mg of Ativan for the anxiety attack. This did help. She has been off of her anxiety medicationsfor a while now. The patient was recently diagnosed with pyelonephritis on the right side and has been on an appropriate antibiotic based on culture. Her white count however has rebounded some to 15,000 from a low of 7000 getting some concern for the possibility of incomplete treatment of the pyelonephritis. The patient has been given a dose of oral Levaquin. A blood culture will be performed. the patient will be monitored. repeat CT of the abdomen for evaluation of the kidney does show changes consistent with pyelonephritis. No evidence of abscess formation. No mention of any ischemia. additionally the patient does have a new small effusion on the left lower lung field that is not likely the cause of the chest pain but still a possibility. The effusion is most likely from IV fluids given for treatment of the pyelonephritis earlier this week. There is however the possibility of worsening CHF as the cause, given her BNP elevation. Source of the substernal chest pain is not certain at this time. It is possibly esophagitis given that she is on a new antibiotic. It is possibly pain from her sternotomy wires given that she was throwing up significantly earlier in the week. By description however the pain seems most consistent with pleurisy. She has responded to the pain medications. CT angiogram was performed to help rule out pulmonary embolus and large vessel pathology of the chest. Results were reassuring. Cardiac enzymes are negative 2 sets but she does need a third longer-term set. She has no history of any coronary artery disease and at her age should be low risk for coronary artery disease. Of some concern is that the noorvik beats seen on the EKG did show some inverted T waves in lateral leads. I do not have any previous EKGs with her [place] beats that are not paced. It is possible these have been there for the last 15 years. I would like to have the patient further monitored until the current pain medications have worn off to see if her pain recurs or changes in nature. Admit for further observation and workup as deemed necessary. 05/18/17 06:04 - Results/Orders Results/Orders: Laboratory Tests 05/18/17 05/18/17 05/18/17 01:10 01:10 01:10 WBC 15.6 H RBC 4.97 Hgb 14.1 Hct 42.4 MCV 85.3 MCH 28.3 MCHC 33.3 RDW 13.2 Plt Count 156 MPV 10.9 H Absolute Neuts (auto) 11.70 H Absolute Lymphs (auto) 2.40 Absolute Monos (auto) 1.10 H Absolute Eos (auto) 0.30 Absolute Basos (auto) 0.10 Neutrophils % 74.7 Lymphocytes % 15.5 L Monocytes % 7.1 Eosinophils % 2.2 Basophils % 0.5 PT 11.8 INR 1.040 PTT (SP) 34.6 D-Dimer, Quantitative 587 H* Sodium 138 Potassium 4.0 Chloride 100 L Carbon Dioxide 27 Anion Gap 15.0 BUN 10 Creatinine 0.78 BUN/Creatinine Ratio 12.8 Random Glucose 95 Serum Osmolality 274.5 L Calcium 10.1 Magnesium 2.2 Total Bilirubin 0.3 AST 32 ALT 61 H Alkaline Phosphatase 67 L Creatine Kinase 35 CK-MB (CK-2) 0.7 CK-MB (CK-2) % Not Reportable Troponin I < 0.02 B-Natriuretic Peptide 454.0 H* Serum Total Protein 8.4 H Albumin 4.4 Globulin 4.0 H Albumin/Globulin Ratio 1.1 Amylase 57 Lipase 31 Serum HCG, Qual Urine Color Urine Appearance Urine pH Ur Specific [place] Urine Protein Urine Glucose (UA) Urine Ketones Urine Blood Urine Nitrite Urine Bilirubin Urine Urobilinogen Ur Leukocyte Esterase Urine RBC Urine WBC Ur Epithelial Cells Urine Bacteria 05/18/17 05/18/17 05/18/17 01:10 03:06 04:18 WBC RBC Hgb Hct MCV MCH MCHC RDW Plt Count MPV Absolute Neuts (auto) Absolute Lymphs (auto) Absolute Monos (auto) Absolute Eos (auto) Absolute Basos (auto) Neutrophils % Lymphocytes % Monocytes % Eosinophils % Basophils % PT INR PTT (SP) D-Dimer, Quantitative Sodium Potassium Chloride Carbon Dioxide Anion Gap BUN Creatinine BUN/Creatinine Ratio Random Glucose Serum Osmolality Calcium Magnesium Total Bilirubin AST ALT Alkaline Phosphatase Creatine Kinase 24 L D CK-MB (CK-2) 0.6 CK-MB (CK-2) % Not Reportable Troponin I < 0.02 B-Natriuretic Peptide Serum Total Protein Albumin Globulin Albumin/Globulin Ratio Amylase Lipase Serum HCG, Qual Negative Urine Color Yellow Urine Appearance Clear Urine pH 7.5 Ur Specific [place] 1.020 Urine Protein Negative Urine Glucose (UA) Negative Urine Ketones Negative Urine Blood Negative Urine Nitrite Negative Urine Bilirubin Negative Urine Urobilinogen 0.2 Ur Leukocyte Esterase Negative Urine RBC 0 Urine WBC 0-1 Ur Epithelial Cells 1-3 Urine Bacteria 1+ chest x-ray shows no evidence of any pneumoniaor CHF. pacemaker appears appropriate. CT angiogram of chest shows no evidence of pulmonary embolus or large vessel disease. No evidence of tamponade. No obvious pericardial thickening noted. She does have a small new left sided lower lung field effusion. CT scan of the abdomen shows changes consistent with the right sided pyelonephritis. No free air. Departure - Departure Clinical Impression: Anxiety attack, Pyelonephritis Chest pain Qualifiers: Chest pain type: chest pain on breathing Qualified Code(s): R07.1 - Chest pain on breathing; R07.81 - Pleurodynia Disposition: Admit Patient Referrals: DENNIS COLES [Primary Care Provider] - 1-2 Weeks Home Medications: Ambulatory Orders Acetamin W/Cod #3 Tab [Tylenol w/CODEINE #3] 1 ea PO Q4HR #20 tab 05/15/17 Acetaminophen [Mapap] 500 mg PO Q4HR PRN #30 cap 05/15/17 Cefuroxime Axetil 500 mg PO Q12H #28 tablet 05/15/17 Decision To Admit - Decistion To Admit Decision to Admit Reason: Medical Nature Decision to Admit Date: 05/18/17 Decision to Admit Time: 06:12
--- NOTE | 2017-05-18 02:42 | RAD ---
Examination: XR CHEST 1 VIEW dated 05/18/2017 2:08 AM NURSE DISCHARGE PLANNER History: acute severe substernal chest pain Comparison: 05/11/2017 Technique: Frontal view of the chest Findings: No focal airspace consolidation. No pneumothorax or pleural effusion. Stable cardiac pacer and abandoned epicardial lead. Prior median sternotomy. Unremarkable cardiac silhouette. Impression: No acute findings. Electronically signed by: Link Delaney MD 05/18/2017 2:41 AM NURSE DISCHARGE PLANNER
[2017-05-18] MEDS ORDERED: CARVEDILOL 3.125 MG TAB PO ONE (02:56)
--- NOTE | 2017-05-18 04:01 | CT ---
EXAM DESCRIPTION: CTA Chest (accession [id number]), Abdomen w/Contrast (accession [id number]) CLINICAL HISTORY: pe protocol, acute cp, elev ddimer and bnp COMPARISON: Chest radiograph same day TECHNIQUE: Axial CT images of the chest, abdomen, and pelvis were acquired after the administration of intravenous contrast. Coronal and sagittal reconstructions were obtained. 3-D postprocessing of the chest was acquired at an independent workstation. This exam was performed according to our departmental dose-optimization program which includes use of Automated Exposure Control, adjustment of the mA and/or kV according to patient size and/or use of iterative reconstruction technique. FINDINGS: CT chest Small amount of residual thymic tissue. Unremarkable mediastinum. No lymphadenopathy. No right heart strain. Cardiac pacer leads are present. Unremarkable thoracic aorta. No large or central pulmonary embolism. Limited evaluation of smaller branch vessels secondary to respiratory motion. Patent central airways. Small left pleural effusion. No suspicious pulmonary nodules or masses. Mild left lung base atelectasis. CT abdomen and pelvis Unremarkable liver, gallbladder, adrenals, spleen, and pancreas. Multifocal patchy hypoattenuation of the right kidney concerning for pyelonephritis. No renal stones or hydronephrosis. Unremarkable left kidney. Unremarkable abdominal aorta. Patent mesenteric vessels. No lymphadenopathy. No bowel obstruction. Unremarkable colon. No findings to suggest acute appendicitis. Small amount of free fluid in the pelvis. No free air. Unremarkable reproductive organs. Normal bladder. No acute osseous or soft tissue abnormalities. IMPRESSION: CT CHEST: No large or central pulmonary embolism. Limited evaluation of smaller branch vessels secondary to respiratory motion. No findings to suggest pneumonia. CT ABDOMEN AND PELVIS: Extensive patchy hypoattenuation of the right kidney concerning for pyelonephritis. Correlate with urinalysis and laboratory values. Electronically signed by: Link Delaney MD 05/18/2017 4:00 AM JOURNEYMAN PATTERNMAKER
--- NOTE | 2017-05-18 04:01 | CT ---
EXAM DESCRIPTION: CTA Chest (accession [id number]), Abdomen w/Contrast (accession [id number]) CLINICAL HISTORY: pe protocol, acute cp, elev ddimer and bnp COMPARISON: Chest radiograph same day TECHNIQUE: Axial CT images of the chest, abdomen, and pelvis were acquired after the administration of intravenous contrast. Coronal and sagittal reconstructions were obtained. 3-D postprocessing of the chest was acquired at an independent workstation. This exam was performed according to our departmental dose-optimization program which includes use of Automated Exposure Control, adjustment of the mA and/or kV according to patient size and/or use of iterative reconstruction technique. FINDINGS: CT chest Small amount of residual thymic tissue. Unremarkable mediastinum. No lymphadenopathy. No right heart strain. Cardiac pacer leads are present. Unremarkable thoracic aorta. No large or central pulmonary embolism. Limited evaluation of smaller branch vessels secondary to respiratory motion. Patent central airways. Small left pleural effusion. No suspicious pulmonary nodules or masses. Mild left lung base atelectasis. CT abdomen and pelvis Unremarkable liver, gallbladder, adrenals, spleen, and pancreas. Multifocal patchy hypoattenuation of the right kidney concerning for pyelonephritis. No renal stones or hydronephrosis. Unremarkable left kidney. Unremarkable abdominal aorta. Patent mesenteric vessels. No lymphadenopathy. No bowel obstruction. Unremarkable colon. No findings to suggest acute appendicitis. Small amount of free fluid in the pelvis. No free air. Unremarkable reproductive organs. Normal bladder. No acute osseous or soft tissue abnormalities. IMPRESSION: CT CHEST: No large or central pulmonary embolism. Limited evaluation of smaller branch vessels secondary to respiratory motion. No findings to suggest pneumonia. CT ABDOMEN AND PELVIS: Extensive patchy hypoattenuation of the right kidney concerning for pyelonephritis. Correlate with urinalysis and laboratory values. Electronically signed by: Link Delaney MD 05/18/2017 4:00 AM NURSING HOME DIRECTOR
[2017-05-18] MEDS ORDERED: ACETYLCYSTEIN 20 % 6,000 MG/30 ML VIAL PO ONE (05:41)
[2017-05-18] MEDS ORDERED: PANTOPRAZOLE SODIUM IV 40 MG VIAL IV ONE (05:43)
[2017-05-18] MEDS ORDERED: CIPROFLOXACIN 500 MG TAB PO ONE (05:53)
[2017-05-18] MEDS ORDERED: NITROGLYCERIN 0.4 MG 25 EA TAB SL PRN ×2 (06:18→09:17)
[2017-05-18] MEDS ORDERED: KETOROLAC TROMETHAMINE INJ 30 MG/ML VIAL IV ONE (06:18)
--- NOTE | 2017-05-18 07:11 | HP ---
SUPERVISING PHYSICIAN: Link Ortiz M.D. CHIEF COMPLAINT: Chest pain. HISTORY OF PRESENT ILLNESS: This is a 22 year-old female that presented to the Emergency Room secondary to severe substernal chest pain that started acutely approximately 1 hour prior to her arrival in the Emergency Room. She usually does not have any chest pain but she does have a significant history of cardiomyopathy as a child and actually had a pacemaker implantation at 7 years of age. She does not have any coronary artery disease or any large vessel disease that she knows of. She has no history of pulmonary emboli. She was recently admitted to the hospital within the last week or so for pyelonephritis and there was some question of a wedge infarction of her kidney, but that was mostly ruled out and treated as pyelonephritis. She was sent home on a cephalosporin and in the Emergency Room her initial cardiac enzymes were negative. Her urinalysis was totally within normal limits. Her WBCs were elevated at 15.6. She has a normal H&H of 14.1 and 42.4 with no left shift. She did have a positive D-dimer at 587. Sodium 138, potassium 4, chloride 100, carbon dioxide 27, BUN 10, creatinine 0.78. Serum osmolality 274.5 with ALT 61 , alkaline phosphatase 67. BNP 454. Previous BNP in 2016 was 375. Serum total protein 8.4 and globulin of 4. Serum HCG was negative. Blood cultures were obtained. She was given some oral Cipro as well as some Toradol. Her vital signs were within normal limits. She was given a GI slider, Diazepam and Nitroglycerin. I was called for admission to the hospital. PAST MEDICAL HISTORY: 1. Cardiomyopathy resulting in pacemaker implantation at 7 years of age. 2. Previous stroke, uncertain region, reported by mother secondary to a blood clot as a child. 3. Recent hospital admission for pyelonephritis and question of a wedge infarction of the right kidney as well as pyelonephritis and was treated with antibiotics as an inpatient. PAST SURGICAL HISTORY: No major surgery other than pacemaker implantation. PAST OBSTETRICAL HISTORY: 1, Para 0, AB-1. Last menstrual period 2 weeks ago. CURRENT MEDICATIONS: 1. Acetaminophen with codeine #3. 2. Cefuroxime antibiotics. ALLERGIES: NO KNOWN DRUG ALLERGIES. FAMILY HISTORY: Positive for cancer, hypertension, diabetes. SOCIAL HISTORY: The patient just recently moved back to [place] to live with her mother. She is disabled. She smokes approximately 1/2 pack of cigarettes daily and occasionally drinks alcohol. She denies any illicit drug use. REVIEW OF SYSTEMS: Positive for chills. Negative for fever or weight changes. HEENT: Denies sinus symptoms, ear pain, vision changes or sore throat. RESPIRATORY: Denies coughing, wheezing, shortness of breath. CARDIAC: As per History of Present Illness. GASTROINTESTINAL: Denies nausea, vomiting, abdominal pain, constipation, diarrhea. GENITOURINARY: Denies hematuria, dysuria, nocturia. NEUROLOGIC: Denies headaches, seizures or dizziness. PHYSICAL EXAMINATION: VITAL SIGNS: She is afebrile, heart rate 60, blood pressure 93/55, respiratory rate 18, O2 sat is 96% on room air. GENERAL: This is a thin 22 year-old female patient who is lying in her hospital bed. She is in no acute distress. HEENT: Normocephalic and atraumatic. Pupils are equal and reactive. Oropharynx is clear. NECK: Supple without mass. There is no discernible jugular venous distention. RESPIRATORY: Clear to auscultation bilaterally. CHEST: There is equal rise and fall of the chest with inspiration and expiration. CARDIOVASCULAR: Regular rate and rhythm. ABDOMEN: Soft, nondistended, non-tender. Bowel sounds are positive. EXTREMITIES: No cyanosis, clubbing or edema. NEUROLOGIC: She is awake, alert and oriented times three. She is somewhat anxious. LABORATORY: Labs and films are as per History of Present Illness. ASSESSMENT: 1. Chest pain, rule out myocardial infarction with a significant history of cardiomyopathy as a child and pacemaker implantation at 7 year of age and negative cardiac enzymes at this time. 2. Recent history of hospitalization from pyelonephritis. PLAN: We will place the patient in Observation. We will continue with the chest pain guidelines. I have spoken at length to the patient and the patient' s mother, and she has a followup appointment with Dr. Perez at [facility] on Sunday of this week. It is very important that she goes to that appointment as her previous school psychological examiner was at [facility] and since she is 22 she will no longer be able to see a pediatric dietician, so she needs to see Dr. Perez so she can be referred to a school psychological examiner. She will also need to see a urologist at some point. I previously had spoken to Dr. Daly, cardiac/vascular sonographer, and he agreed to see her and had some previous blood work done. I explained this in length to the family. Plan for discharge tomorrow. Otherwise we will continue to monitor the patient closely and follow as needed. Dr. Ortiz is the collaborating physician available for consultation. #[id number] MTDD
[2017-05-18] MEDS ORDERED: ACETAMINOPHEN 325 MG TAB PO PRN (09:17)
[2017-05-18] MEDS ORDERED: SODIUM CHLORIDE 0.9% (FLUSH) 10 ML SYG IV PRN (09:17)
[2017-05-18] MEDS ORDERED: IV SET AND CAP CHANGE INJ INJ SCH (09:30)
[2017-05-18] MEDS ORDERED: ACETAMINOPHEN W/COD #3 TAB 1 EA TAB PO PRN (13:12)
[2017-05-18] MEDS: CEFUROXIME AXETIL 500 MG PO SCH ×2 (13:46→20:30)
[2017-05-18] MEDS: CITALOPRAM HBR 20 MG TAB PO SCH (15:55)
[2017-05-18] MEDS: SODIUM CHLORIDE 0.9% (FLUSH) 10 ML SYG IV SCH (20:30)
[2017-05-19] MEDS ORDERED: ASPIRIN TABLET 325 MG TAB PO SCH (09:00)
[2017-05-19] MEDS: CEFUROXIME AXETIL 500 MG PO SCH (09:08)
[2017-05-19] MEDS: SODIUM CHLORIDE 0.9% (FLUSH) 10 ML SYG IV SCH (09:09)
[2017-05-19] MEDS: CITALOPRAM HBR 20 MG TAB PO SCH (09:09)
[2017-05-19 10:07] VITALS: BP 98/65; TEMP 96.1; O2SAT 98
[2017-05-19] MEDS ORDERED: ALUM & MAG HYDROX-SIMETHICONE 30 ML, LIDOCAINE VISCOUS 2% 15 ML PO ONE ×2 (12:36)
[2017-05-19] MEDS ORDERED: ALUM & MAG HYDROX-SIMETHICONE 30 ML UD ONE (12:40)
[2017-05-19] MEDS ORDERED: LIDOCAINE HCL 2% (MOUTH-THROAT) 15 ML UD ONE (12:40)
--- NOTE | 2017-05-20 12:29 | DS ---
SUPERVISING PHYSICIAN: Link Ortiz M.D. DISCHARGE DIAGNOSIS: 1. Chest pain with no evidence of acute myocardial infarction on laboratory studies with all troponins being negative times 3 with the patient having a ventricular paced right with the patient's pain relieved with a GI slider felt to be secondary to possibly mild gastritis or developing peptic ulcer. 2. Recent history of hospitalization from pyelonephritis continued on p.o. antibiotic. 3. Depression and anxiety with anxiety attacks. REASON FOR HOSPITALIZATION: Ms. Amaral is a 22 year-old female patient that presented to the Emergency Room secondary to severe substernal chest pain that started acutely approximately 1 hour prior to her arrival in the Emergency Room. She usually does not have any chest pain but she does have a significant history of cardiomyopathy as a child and actually had a pacemaker implantation at 7 years of age. She does not have any coronary artery disease or any large vessel disease that she knows of. She has no history of pulmonary emboli. She was recently admitted to the hospital within the last week or so for pyelonephritis and there was some question of a wedge infarction of the right kidney. She was treated with antibiotics for pyelonephritis and was discharged home. At discharge, she was started on cephalosporin and in the Emergency Room her cardiac enzymes were negative. Her urinalysis was totally within normal limits. She did show an elevated white count at 15,600. She also had an elevated BNP of 454 with her last BNP in 2016 being 375. Serum HCG was negative. Blood cultures were obtained. She was given an oral dose of Cipro initially in the Emergency Department as well as Toradol and her vital signs were all within normal limits. She was given a GI slider, Diazepam and Nitroglycerin as it was felt that possibly she was having an anxiety attack. She was placed in Observation in stable condition. LABORATORY STUDIES: CBC initially showed a leukocytosis of 15,600, this had improved and normalized to 7,500 prior to discharge. Her hemoglobin at discharge was 12.1, hematocrit was 35.8, platelet count within normal limits at 226,000. Differential showed to be without a left shift. Coagulation studies did show an elevated D-dimer at 587, however she has recently had a possible infarct of her right kidney as well as pyelonephritis. Her PT and PTT were both normal. Chemistries: HCG was negative. Cardiac enzymes on admission showed troponin less than 0.02. Amylase and lipase all within normal limits. Liver functions showed just a slightly elevated ALT of 61 and alkaline phosphatase of 67. Chemistry: Electrolytes were within normal limits, BUN 10, creatinine 0.78, magnesium 2.2. She had 3 other sets of cardiac enzymes with her troponin being less than 0.02. Urinalysis on admission showed to be within normal limits. MICROBIOLOGY: Blood cultures were negative at 24 hours. Urine culture preliminary at discharge showed insignificant colony count of mixed zechariah. RADIOLOGY: She had a chest x-ray initially in the Emergency Department prior to admission and per radiology interpretation showed no acute findings. She also had an abdominal CT and a chest thoracic CTA. The CT per radiology interpretation showed of the chest no large central pulmonary embolism. No findings to suggest pneumonia. CT of the abdomen and pelvis showed extensive patchy attenuation of the right kidney concerning for pyelonephritis. EKGs showing a paced rhythm, 100% ventricular. HOSPITAL COURSE: Ms. Amaral was admitted on 05/18/17 for chest pains as noted above. She was quite emotional in the E. R. as it was found that she had just recently broke up with her boyfriend since her discharge from the hospital. She was given a GI slider, Benzodiazepines which did result in improvement of her pain. It was noted that she was having pain with emotional outbursts as well as they were reproducible with deep inspiratory efforts. On the morning of discharge, she only had a very mild discomfort in her epigastrium that was notable on palpation. She was then given a GI slider and reported that her symptoms had gone down to no pain level at all. Again she had shown hemodynamically to be stable with blood pressure on admission showing 141/74 with respirations 22, pulse 75. She was afebrile with a pulse oximetry of 99. At discharge, blood pressure was 98/65, she was afebrile and she was satting 98 % on room air. It was felt that she had demonstrated there was no evidence of acute myocardial infarction or ischemic changes and she had gotten relief with a GI cocktail, therefore it was felt that she could be discharged to followup with Dr. Perez this coming week. PLAN: The patient was discharged on 05/19/17 to have close clinical followup once again with Dr. Perez as scheduled this coming week. She was prescribed an antidepressant in the form of Celexa as well as started on Carafate and some Protonix. She was instructed to avoid spicy foods and to advance her diet slowly as tolerated. She was to avoid antiinflammatories such as Ibuprofen, Aleve, Motrin and aspirin. She was to resume her home medications as directed prior to hospitalization and new prescriptions as instructed. She was encouraged to stop smoking. Again, she was instructed to call the hospital or followup with the E. R. if any symptoms reoccur or she has other concerning symptoms. DISCHARGE MEDICATIONS: 1. Celexa 20 mg daily, #30. 2. Protonix 20 mg daily, #30. 3. Carafate 1 gram before meals and bedtime, #36. #[id number] [facility]
== END 2017-05-19 14:28 | disposition home or self-care (01) ==
LOC: ER 01:55 → INTOOBSV 07:10 → MS 07:10
PROVIDERS: ADMIT Nurse Practitioner Acute Care; ATTEND Nurse Practitioner Family
DX: R07.89 Other chest pain (principal); N12 Tubulo-interstitial nephritis, not specified as acute or chronic; F41.9 Anxiety disorder, unspecified; F32.9 Major depressive disorder, single episode, unspecified; D72.829 Elevated white blood cell count, unspecified; F17.210 Nicotine dependence, cigarettes, uncomplicated; Z95.0 Presence of cardiac pacemaker; Z86.73 Personal history of transient ischemic attack (TIA), and cerebral infarction without residual deficits; Z82.49 Family history of ischemic heart disease and other diseases of the circulatory system
CPT/HCPCS: 36415 ×7; 71045; 71275; 74160; 80048; 80053; 81001; 82150; 82550 ×4; 82553 ×4; 83690; 83735 ×2; 83880; 84484 ×4; 84703; 85025 ×2; 85379; 85610; 85730; 87040 ×2; 87086; 93005 ×3; 94762; 96374; 96375; 99284; 99406; G0378; J1885; J2060; J2270